=== PATIENT | female | born 1945 | race Caucasian/White ===

== ENCOUNTER 2018-02-21 16:31 | Inpatient (IN) | payer MEDICARE, OTHER ==
[~2018-02-21 16:31] MED LIST: AMLO10 PO; CARV3.125 PO; CLON.1 PO; FURO20 PO; GLUCTAB PO; LISI40TA PO; PANT20 PO
[2018-02-21 16:38] VITALS: BP 128/62; PULSE 100; RESP 20; TEMP 98.1; O2SAT 96
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
[2018-02-21] MEDS ORDERED: MECLIZINE HCL 25 MG TAB PO ONE (17:15)
[2018-02-21] MEDS ORDERED: DEXTROSE 50% IN WATER 50 ML VIAL(D50) IV PUSH ONE ×2 (17:15→18:30)
[2018-02-21 17:16] VITALS: O2SAT 97
--- NOTE | 2018-02-21 17:37 | RADRPT ---
EXAM DATE/TIME: 02/21/2018 17:09 [facility] COMPARISON: CHEST SINGLE AP, September 19, 2015, 4:05. INDICATIONS : Palpitations MEDICAL HISTORY : None. SURGICAL HISTORY : None. ENCOUNTER: Initial ACUITY: 1 day PAIN SCORE: 0/10 LOCATION: chest FINDINGS: A single view of the chest demonstrates the lungs to be symmetrically aerated without evidence of mas s, infiltrate or effusion. The cardiomediastinal contours are unremarkable. Osseous structures are intact. CONCLUSION: Normal examination. The aorta is quite tortuous. Kai Walker MD on February 21, 2018 at 17:34 Board Certified Radiologist. This report was verified electronically.
[2018-02-21 17:43] LABS: BASOPHIL % 0.4 % (0.0-2.0); EOSINOPHIL % 0.4 % (0.0-4.0); HEMATOCRIT 25.6 % (35.0-46.0); LYMPH % 5.7 % (9.0-44.0); LYMPHOCYTE # 0.5 TH/MM3 (1.0-4.8); MEAN CORPUSCULAR HEMOGLOBIN 24.4 PG (27.0-34.0); MEAN CORPUSCULAR HGB CONC 31.3 % (32.0-36.0); MEAN PLATELET VOLUME 8.2 FL (7.0-11.0); MONO % 9.5 % (0.0-8.0); MONOCYTE # 0.9 TH/MM3 (0-0.9); PLATELET COUNT 444 TH/MM3 (150-450); RED BLOOD COUNT 3.28 MIL/MM3 (4.00-5.30); RED CELL DISTRIBUTION WIDTH 26.3 % (11.6-17.2); WHITE BLOOD COUNT 9.5 TH/MM3 (4.0-11.0)
--- NOTE | 2018-02-21 17:58 | RADRPT ---
EXAM DATE/TIME: 02/21/2018 17:21 [facility] COMPARISON: CT BRAIN W/O CONTRAST, September 19, 2015, 4:40. INDICATIONS : Dizzy,potassium level of 7.2 RADIATION DOSE: 56.35 CTDIvol (mGy) MEDICAL HISTORY : Cerebrovascular disease. Cardiovascular disease Hypertension.Diabetes,anemea SURGICAL HISTORY : Nephrectomy, left. ENCOUNTER: Initial ACUITY: 1 day PAIN SCALE: 0/10 LOCATION: cranial TECHNIQUE: Multiple contiguous axial images were obtained of the head. Using automated exposure control and adj ustment of the mA and/or kV according to patient size, radiation dose was kept as low as reasonably a chievable to obtain optimal diagnostic quality images. DICOM format image data is available electro nically for review and comparison. FINDINGS: CEREBRUM: 2 small lacunar infarcts in the left basal ganglia . The ventricles are normal for age. No evidence of midline shift, mass lesion, hemorrhage or acute infarction. No extra-axial fluid collections are seen. POSTERIOR FOSSA: The cerebellum and brainstem are intact. The 4th ventricle is midline. The cerebellopontine angle i s unremarkable. EXTRACRANIAL: The visualized portion of the orbits is intact. SKULL: The calvaria is intact. No evidence of skull fracture. CONCLUSION: 2 lacunar infarcts on the left, chronic. No evidence of acute hemorrhage or edema. Kai Walker MD on February 21, 2018 at 17:55 Board Certified Radiologist. This report was verified electronically.
[2018-02-21] MEDS ORDERED: PANTOPRAZOLE SODIUM 40 MG VIAL IVP ONE (18:00)
[2018-02-21 18:12] LABS: ALBUMIN 3.1 GM/DL (3.4-5.0); ALKALINE PHOSPHATASE 139 U/L (45-117); ALT (GPT) 22 U/L (10-53); AST (GOT) 22 U/L (15-37); BICARBONATE 15.8 MEQ/L (21.0-32.0); BLOOD UREA NITROGEN 37 MG/DL (7-18); CHLORIDE 111 MEQ/L (98-107); GLOMERULAR FILTRATION RATE 17 ML/MIN (>89); MAGNESIUM 1.8 MG/DL (1.5-2.5); SODIUM (NA) 135 MEQ/L (136-145); TOTAL BILIRUBIN ADULT 0.2 MG/DL (0.2-1.0); TOTAL PROTEIN 7.6 GM/DL (6.4-8.2); TROPONIN I LESS THAN 0.02 NG/ML (0.02-0.05)
[2018-02-21 18:15] LABS: GLUCOSE,RANDOM 49 MG/DL (74-106)
[2018-02-21 18:29] LABS: OVALOCYTES 2+ (NORMAL)
[2018-02-21] MEDS ORDERED: CALCIUM GLUCONATE 10% 1 GM/10 ML VIAL IV PUSH ONE (18:30)
[2018-02-21] MEDS ORDERED: INSULIN HUMAN REGULAR 1,000 UNITS/10 ML VIAL IV PUSH ONE (18:30)
[2018-02-21] MEDS ORDERED: SODIUM POLYSTYRENE SULFONATE SUSP 15 GM/60 ML CUP PO ONE ×2 (18:30→20:00)
[2018-02-21] MEDS ORDERED: RESP: ALBUTEROL CONC 2.5 MG/0.5 ML NEB INH ONE (18:30)
[2018-02-21] MEDS ORDERED: GLIM2TAB PO (18:32)
[2018-02-21] MEDS ORDERED: SPIRCAP INH (18:32)
[2018-02-21] MEDS ORDERED: LISI40TA PO (18:32)
[2018-02-21] MEDS ORDERED: FURO20TA PO (18:32)
[2018-02-21] MEDS ORDERED: SPIR50TA PO (18:32)
[2018-02-21] MEDS ORDERED: AMLO10TA2 PO (18:32)
[2018-02-21] MEDS ORDERED: METF500T PO (18:32)
[2018-02-21] MEDS ORDERED: VENTAER INH (18:32)
[2018-02-21] MEDS ORDERED: FERR325T18 PO (18:32)
[2018-02-21] MEDS ORDERED: CARV6.252 PO (18:32)
[2018-02-21] MEDS ORDERED: GABA100C4 PO (18:32)
[2018-02-21] MEDS ORDERED: CLON0.1T PO (18:32)
[2018-02-21 18:53] LABS: INTERNATIONAL NORMALIZED RATIO 1.1 RATIO; PROTHROMBIN TIME - PATIENT 10.7 SEC (9.8-11.6)
[2018-02-21] MEDS ORDERED: NALOXONE HCL 0.4 MG/ML AMP IV PUSH PRN (19:00)
[2018-02-21] MEDS ORDERED: SODIUM CHLORIDE 0.9% FLUSH 10 ML FLUSH IV FLUSH PRN (19:00)
[2018-02-21 20:00] VITALS: BP 120/59; PULSE 113; RESP 16; TEMP 98.5; O2SAT 96
[2018-02-21] MEDS ORDERED: GLUCAGON 1 MG/ML VIAL IM PRN (20:00)
[2018-02-21] MEDS ORDERED: DEXTROSE 50% IN WATER 50 ML VIAL(D50) IV PUSH PRN (20:00)
[2018-02-21] MEDS ORDERED: SODIUM BICARBONATE 8.4% INJ 150 MEQ in DEXTROSE 5% IN WATE 1000ML INJ 1,000 ML IV ONE ×2 (20:16)
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
[2018-02-21] MEDS ORDERED: AZITHROMYCIN 250 MG TAB PO ONE (21:00)
[2018-02-21 21:49] LABS: AMORPHOUS SEDIMENT, URINE RARE; BACTERIA, URINE MANY /hpf; BILIRUBIN, URINE NEG (NEG); BLOOD, URINE SMALL (NEG); GLUCOSE,URINE NEG (NEG); KETONE, URINE NEG (NEG); MUCUS URINE FEW /lpf (OCC); NITRITE,URINE POS (NEG); SQUAMOUS EPITHELIAL CELL URINE 4 /hpf (0-5); URINE COLOR LIGHT-YELLOW (YELLW/STRAW); URINE LEUKOCYTE ESTERASE MOD (NEG)
[2018-02-21 22:00] VITALS: PULSE 106
--- NOTE | 2018-02-21 22:09 | RADRPT ---
EXAM DATE/TIME: 02/21/2018 21:39 [place] COMPARISON: No previous studies available for comparison. INDICATIONS : Trauma, fall. Evaluate for fracture. ORAL CONTRAST: No oral contrast ingested. RADIATION DOSE: 52.00 CTDIvol (mGy) ; Patient body habitus MEDICAL HISTORY : Hypertension. Myocardial infarction. Renal disease. SURGICAL HISTORY : Nephrectomy, left. ENCOUNTER: Initial ACUITY: 1 day PAIN SCALE: 7/10 LOCATION: pelvis TECHNIQUE: Volumetric scanning of the pelvis was performed. Using automated exposure control and adjustment of the mA and/or kV according to patient size, radiation dose was kept as low as reasonably achievable t o obtain optimal diagnostic quality images. DICOM format image data is available electronically for review and comparison. FINDINGS: The bony pelvis is intact and has normal morphology. No subluxation of either hip. There is mild bila teral hip osteoarthritis. Mild to moderate degenerative changes of both sacroiliac joints and also the pubic symphysis. No free fluid, hematoma or other acute abnormality seen in the pelvic cavity. Patient has an approxim ately 2.5 cm ventral hernia containing a small amount of fat roughly mcc between the umbilicus an d pubic symphysis. Previous periumbilical hernia repair and appears intact. Also a previous left ingu inal hernia repair that appears intact. CONCLUSION: No fracture or other acute abnormality demonstrated. Alexis Ricks MD on February 21, 2018 at 22:03 Board Certified Radiologist. This report was verified electronically.
[2018-02-21] MEDS: cefTRIAXone INJ 1,000 MG in SODIUM CHLORIDE 0.9% INJ 100 ML IV SCH (22:20)
[2018-02-21] MEDS: NYSTATIN 100,000 U/GM PWD 15 GM BTL TOPICAL SCH (22:21)
[2018-02-21] MEDS: CARVEDILOL 6.25 MG TAB PO SCH (22:21)
[2018-02-21] MEDS: cloNIDine HCL 0.1 MG TAB PO SCH (22:22)
[2018-02-21] MEDS: SODIUM CHLORIDE 0.9% FLUSH 10 ML FLUSH IV FLUSH SCH (22:28)
[2018-02-21 23:25] VITALS: BP 108/53; PULSE 99; RESP 17; TEMP 100.3; O2SAT 95
[2018-02-21 23:54] VITALS: BP 95/51; PULSE 95; RESP 17; TEMP 101.2; O2SAT 94
[2018-02-22] VITALS (8 sets, daily range): BP systolic 104–136; BP diastolic 54–63; PULSE 70–121; RESP 16–24; TEMP 97.3–100.3; O2SAT 93–99
[2018-02-22 05:24] LABS: BASOPHIL # 0.1 TH/MM3 (0-0.2); BASOPHIL % 0.7 % (0.0-2.0); EOSINOPHIL % 0.5 % (0.0-4.0); HEMATOCRIT 24.4 % (35.0-46.0); HEMOGLOBIN 7.9 GM/DL (11.6-15.3); LYMPH % 11.2 % (9.0-44.0); MEAN CELL VOLUME 78.1 FL (80.0-100.0); MEAN CORPUSCULAR HEMOGLOBIN 25.2 PG (27.0-34.0); MEAN CORPUSCULAR HGB CONC 32.3 % (32.0-36.0); MEAN PLATELET VOLUME 8.1 FL (7.0-11.0); MONOCYTE # 1.1 TH/MM3 (0-0.9); NEUT % 75.6 % (16.0-70.0); PLATELET COUNT 360 TH/MM3 (150-450); RED BLOOD COUNT 3.12 MIL/MM3 (4.00-5.30); RED CELL DISTRIBUTION WIDTH 25.9 % (11.6-17.2); WHITE BLOOD COUNT 9.3 TH/MM3 (4.0-11.0)
[2018-02-22 05:48] LABS: BICARBONATE 18.2 MEQ/L (21.0-32.0); CALCIUM 9.3 MG/DL (8.5-10.1); CREATININE 2.76 MG/DL (0.50-1.00)
[2018-02-22] MEDS ORDERED: ACETAMINOPHEN 325 MG TAB PO PRN (06:00)
[2018-02-22] MEDS: NYSTATIN 100,000 U/GM PWD 15 GM BTL TOPICAL SCH ×3 (06:18→20:37)
[2018-02-22] MEDS: CARVEDILOL 6.25 MG TAB PO SCH ×2 (08:40→20:37)
[2018-02-22] MEDS: GABAPENTIN 100 MG CAP PO SCH ×4 (08:40→17:25)
[2018-02-22] MEDS: FERROUS SULFATE 325 MG (65 MG ELEMENTAL IRON) TAB PO SCH ×2 (08:40→17:25)
[2018-02-22] MEDS: AZITHROMYCIN 250 MG TAB PO SCH (08:40)
[2018-02-22] MEDS: SODIUM CHLORIDE 0.9% FLUSH 10 ML FLUSH IV FLUSH SCH ×2 (08:40→20:37)
[2018-02-22] MEDS: cloNIDine HCL 0.1 MG TAB PO SCH ×2 (08:40→20:37)
[2018-02-22] MEDS: TIOTROPIUM BROMIDE 18 MCG INH INH SCH (08:40)
[2018-02-22] MEDS ORDERED: FUROSEMIDE 20 MG TAB PO SCH (09:00)
[2018-02-22] MEDS ORDERED: FAMOTIDINE 20 MG TAB PO SCH (09:00)
--- NOTE | 2018-02-22 09:19 | PD.CONS ---
HPI History of Present Illness This is a 72 year old female who was advised by her PCP to come to ER for potassium level 7.2. GI is consulted for anemia and poss GIB. Pt has noticed black stools that are formed in the last week since beginning an oral iron supplement. She admits chronic scan BRBPR seen on wipe after BMs. She had colonoscopy somewhere in 4-5 years ago and says she was told blood was seen, further details she provides are incomprehensible. She had EGD at that time as well and can recall no abnormal findings. She denies abd pain, n/v, weight loss. She does not take blood thinners or NSAIDs. She admits having 2 falls in the last month. 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, speech deficits Past Surgical History Cholecystectomy left nephrectomy inguinal hernia repair (Rona Og) Coded Allergies: iodine (Verified Allergy, Severe, Swelling, 02/21/18) potassium iodide (Verified Allergy, Severe, Swelling, 02/21/18) povidone-iodine (Verified Allergy, Severe, Swelling, 02/21/18) sodium iodide (Verified Allergy, Severe, Swelling, 02/21/18) sodium iodide (Verified Allergy, Severe, Swelling, 02/21/18) penicillin G (Verified Allergy, Intermediate, Swelling, 02/21/18) latex (Verified Allergy, Mild, 02/21/18) bumps redness on hands Uncoded Allergies: LANOLIN (Allergy, Intermediate, Rash, 01/27/04) Family History mom- heart problems , rheumatic heart dx sister-same heart as above Social History used to smoke, quit a lot of times no eoth abuse no drugs lives on her own, no longer driving now (Rona Og) Review of Systems Constitutional: DENIES: Fever Endocrine: DENIES: Polydipsia Eyes: DENIES: Blurred vision Ears, nose, mouth, throat: DENIES: Hearing loss Respiratory: COMPLAINS OF: Wheezing, DENIES: Cough Cardiovascular: DENIES: Chest pain Gastrointestinal: COMPLAINS OF: Black stools, DENIES: Abdominal pain, Bloody stools, Constipation, Diarrhea, Nausea, Vomiting Genitourinary: DENIES: Hematuria Musculoskeletal: DENIES: Joint Swelling Integumentary: DENIES: Nail changes Hematologic/lymphatic: DENIES: Bruising Immunologic/allergic: DENIES: Eczema Neurologic: DENIES: Headache Psychiatric: DENIES: Confusion (Rona Og) GI Exam Vitals I&O Vital Signs Date Time Temp Pulse Resp B/P (MAP) Pulse Ox O2 Delivery O2 Flow Rate FiO2 02/22/18 06:15 98.9 88 16 111/54 02/22/18 05:16 100.3 91 16 104/54 94 02/22/18 00:04 99.7 94 17 107/54 97 02/22/18 00:00 97.3 70 16 136/56 (82) 95 02/22/18 00:00 87 02/21/18 23:54 101.2 95 17 95/51 94 02/21/18 23:25 100.3 99 17 108/53 95 02/21/18 22:00 106 02/21/18 20:00 98.5 113 16 120/59 (79) 96 02/21/18 17:16 97 Room Air 02/21/18 16:38 98.1 100 20 128/62 (84) 96 I/O 02/21/18 02/21/18 02/21/18 02/22/18 02/22/18 02/22/18 07:00 15:00 23:00 07:00 15:00 23:00 Intake Total 1200 ml Balance 1200 ml Intake IV Total 100 ml Packed Cells 1000 ml Blood Product IV Normal Saline Flush 100 ml Imaging Last Impressions Head CT 02/21/181702 Signed Impressions: Service Date/Time: January 17:21 - CONCLUSION: 2 lacunar infarcts on the left, chronic. No evidence of acute hemorrhage or edema. Kai Walker MD Chest X-Ray 02/21/181702 Signed Impressions: Service Date/Time: January 17:09 - CONCLUSION: Normal examination. The aorta is quite tortuous. Kai Walker MD Pelvis CT 02/21/18 0000 Signed Impressions: Service Date/Time: January 21:39 - CONCLUSION: No fracture or other acute abnormality demonstrated. Alexis Ricks MD Laboratory Test 02/21/18 17:00 02/21/18 17:55 02/21/18 20:30 02/22/18 04:47 White Blood Count 9.5 TH/MM3 9.3 TH/MM3 Red Blood Count 3.28 MIL/MM3 3.12 MIL/MM3 Hemoglobin 8.0 GM/DL 7.9 GM/DL Hematocrit 25.6 % 24.4 % Mean Corpuscular Volume 78.0 FL 78.1 FL Mean Corpuscular Hemoglobin 24.4 PG 25.2 PG Mean Corpuscular Hemoglobin Concent 31.3 % 32.3 % Red Cell Distribution Width 26.3 % 25.9 % Platelet Count 444 TH/MM3 360 TH/MM3 Mean Platelet Volume 8.2 FL 8.1 FL Neutrophils (%) (Auto) 84.0 % 75.6 % Lymphocytes (%) (Auto) 5.7 % 11.2 % Monocytes (%) (Auto) 9.5 % 12.0 % Eosinophils (%) (Auto) 0.4 % 0.5 % Basophils (%) (Auto) 0.4 % 0.7 % Neutrophils # (Auto) 8.0 TH/MM3 7.0 TH/MM3 Lymphocytes # (Auto) 0.5 TH/MM3 1.0 TH/MM3 Monocytes # (Auto) 0.9 TH/MM3 1.1 TH/MM3 Eosinophils # (Auto) 0.0 TH/MM3 0.0 TH/MM3 Basophils # (Auto) 0.0 TH/MM3 0.1 TH/MM3 CBC Comment AUTO DIFF AUTO DIFF Differential Comment AUTO DIFF CONFIRMED AUTO DIFF CONFIRMED Platelet Estimate HIGH Platelet Morphology Comment NORMAL Ovalocytes 2+ Blood Urea Nitrogen 37 MG/DL 38 MG/DL Creatinine 2.80 MG/DL 2.76 MG/DL Random Glucose 49 MG/DL 75 MG/DL Total Protein 7.6 GM/DL Albumin 3.1 GM/DL Calcium Level 10.0 MG/DL 9.3 MG/DL Magnesium Level 1.8 MG/DL Alkaline Phosphatase 139 U/L Aspartate Amino Transf (AST/SGOT) 22 U/L Alanine Aminotransferase (ALT/SGPT) 22 U/L Total Bilirubin 0.2 MG/DL Sodium Level 135 MEQ/L 142 MEQ/L Potassium Level 6.5 MEQ/L 6.1 MEQ/L Chloride Level 111 MEQ/L 115 MEQ/L Carbon Dioxide Level 15.8 MEQ/L 18.2 MEQ/L Anion Gap 8 MEQ/L 9 MEQ/L Estimat Glomerular Filtration Rate 17 ML/MIN 17 ML/MIN Total Creatine Kinase 140 U/L Creatine Kinase MB 4.9 NG/ML Troponin I LESS THAN 0.02 NG/ML Prothrombin Time 10.7 SEC Prothromb Time International Ratio 1.1 RATIO Activated Partial Thromboplast Time 25.9 SEC Urine Color LIGHT-YELLOW Urine Turbidity HAZY Urine pH 5.0 Urine Specific [place] 1.011 Urine Protein 30 mg/dL Urine Glucose (UA) NEG mg/dL Urine Ketones NEG mg/dL Urine Occult Blood SMALL Urine Nitrite POS Urine Bilirubin NEG Urine Urobilinogen LESS THAN 2.0 MG/DL Urine Leukocyte Esterase MOD Urine RBC LESS THAN 1 /hpf Urine WBC 6 /hpf Urine Squamous Epithelial Cells 4 /hpf Urine Amorphous Sediment RARE Urine Bacteria MANY /hpf Urine Mucus FEW /lpf Microscopic Urinalysis Comment CULTURE INDICATED Date/Time Source Procedure Growth Status 02/22/18 04:47 Blood Peripheral Aerobic Blood Culture Pending Received 02/22/18 04:47 Blood Peripheral Anaerobic Blood Culture Pending Received 02/21/18 20:30 Urine Clean Catch Urine Culture Pending Received Physical Examination HEENT: PERRL; normocephalic; atraumatic; no jaundice. CHEST: wheezes CARDIAC: RRR ABDOMEN: Soft,obese, LUQ TTP; bowel sounds are present in all four quadrants. EXTREMITIES: No clubbing, cyanosis, or edema. SKIN: Normal; no rash; no jaundice. CAMPUS DIRECTOR: alert (Rona Og) Assessment and Plan Plan ASSESSMENT - black stool, BRBPR - poss GIB. black stool could be from iron vs UGIB. admits chronic lifelong scant blood on wipe after BMs. says she had colonoscopy 4-5 years ago and bleeding seen. Had EGD also but can recall no abnormal findings. - anemia - 2/2 above, microcytic. has been taking iron. PLAN - EGD today - obtain consent - NPO - monitor labs - notify GI of active bleeding - colonoscopy Sunday if here, vs outpt - further recs to follow pt seen by myself and Dr Flaherty and this note is on his behalf (Rona Og) Physician Comments Patient seen and examined Agree with above Continue with current supportive care Monitor labs GI bleed etiology unclear at this point the patient is noted to have chronic renal insufficiency with hyperkalemia but her EKG appears to be stable she also was noted to have mild hypoglycemia we will go ahead and give D50 this should help her sugar and bring down her potassium we will also proceed with an EGD to further evaluate for source of bleeding if negative then most likely she will need a colonoscopy probably on Sunday Of note the patient appears to have chronic renal insufficiency or even acute but unfortunately she is also taking spironolactone I would recommend that this be put on hold at this point and it seems that the patient will need a nephrology evaluation Further recommendations will depend on the findings of the endoscopy (Saad Flaherty MD) Rona Og Feb 22, 2018 9:19 am Saad Flaherty MD Feb 22, 2018 11:51 am
--- NOTE | 2018-02-22 11:41 | PD.WCN.NOT ---
Wound Consult Description: Received consult from Doctor Parsons for evaluation of pressure ulcer to sacral area. Communicated with: RN Julianne hansen and Doctor Murcia Recommendation: 1.Please cleanse wounds to bilateral buttocks with normal saline and pat dry. Apply Calazime skin protectant paste to bilateral, buttocks, and gluteal cleft in a thick layer covering wounds BID and PRN leave open to air. 2. Use ultrasorb pads under patient for moisture and incontinence management . Do not use cloth underpads. 3. Assist patient with turning and repositioning in bed every 2 hours and PRN for comfort and offloading of pressure from iqra prominences. 4. Place patient on K4 bed from [facility] Additional Information: Patient seen on for evaluation of sacral pressure ulcer that was present on admission. Moderate assistance was needed to turn patient toward the L side to reveal four wounds on bilateral buttock area with periwound erythema. R buttock presents with two wounds the most proximal wound 1 measures 1.1cm x 2cm x ~0.2cm. Wound bed presents with 80% red non granulation tissue, ~10% pink tissue, and ~10% yellow tissue. Wound margins are well defined and wound has a round shape. Wound was left open to air. Wound 2 to R buttock, that is more distal measures 0.7cm x 1 cm x ~0.2cm. Wound margins are well defined and even. Wound bed presents with 100% red non granulation tissue.Wound has a oblong shape and was left open to air. Wound 3 is on the L proximal buttock measuring 1cm x 0.4cm x ~0.2cm. Wound bed presents with 90% red non granulation tissue and ~10 % yellow tissue. Wound margins are well defined and wound has an oblong shape.Wound was left open to air. Wound 4 is located distally on L buttock and also measures 1cm x 0.4cm x ~ 0.2cm. Wound bed presents with 100% red non granulation tissue. Wound margins are well defined and wound also has an oblong shape. Wound was left open to air. Patient admits to having difficulty with mobility due to history of a stroke and often doesn't reposition or move in bed. Patient has moist bed cloth pads under her.Wounds etiology based on assessment is moisture and pressure. Wounds depth goes beyond the first layer of skin indicating stage 3 pressure injuries. Removed soiled moist cloth pads. Patient's wounds were cleansed with normal saline. Thick layer of Calazime skin protectant paste was applied covering bilateral buttocks, gluteal cleft and wounds. Jessica Amos [facility] Feb 22, 2018 11:41
[2018-02-22] MEDS ORDERED: DEXTROSE 50% IN WATER 50 ML SYRINGE ONE (11:51)
[2018-02-22] MEDS ORDERED: LIDOCAINE HCL 1% PF 5 ML SYRINGE OTHER ONE (12:00)
[2018-02-22] MEDS ORDERED: GLYCOPYRROLATE 1 MG/5 ML SYRINGE IV PUSH ONE (12:00)
[2018-02-22] MEDS ORDERED: PHENYLEPH/NS 1000 MCG/10 ML SYR IV ONE (12:00)
[2018-02-22] MEDS ORDERED: PROPOFOL 200 MG/20 ML AMP IV ONE (12:00)
--- NOTE | 2018-02-22 12:17 | PD.PROCEDR ---
GI Procedure PROCEDURE PERFORMED EGD with biopsies INDICATION FOR PROCEDURE GI bleed, anemia PROCEDURE: The procedure, risks and benefits were discussed with Patient/POA and informed consent was obtained. Anesthesia sedated Patient with Diprivan. Patient was placed in the left lateral decubitus position. EGD: The Pentax videoscope was introduced through the oropharynx and advanced to the second portion of the duodenum under direct visualization. Retroflexion was performed in the stomach. FINDINGS: The esophagus there was distal esophageal mucosal erythema and friability with probable ulceration just above the GE junction this was biopsied no visible vessel was seen and no active bleeding The stomach there was a moderately sized hiatal hernia and there was kind of a nodularity just beneath the esophageal ulceration on the cardia side this too was biopsied this was of unclear significance the gastric mucosa though appear to be diffusely edematous with some patchy erythema in the antrum and so biopsies were taken from the antrum also The duodenum there was also some nodularity and thickening of folds in the duodenal bulb of unclear significance this was biopsied the rest of the duodenum was unremarkable ESTIMATED BLOOD LOSS: Minimal SPECIMENS REMOVED: Biopsies taken from the esophagus the stomach and the duodenum COMPLICATIONS: None IMPRESSION: Severe esophagitis with esophageal ulceration The nodularity noted at the GE junction on the cardia side of unclear significance Hiatal hernia [place] gastritis And duodenal bulb duodenitis PLAN: Await biopsies Recommend Protonix 40 mg Monitor labs EGD in 2 months Colonoscopy on Sunday or as outpatient depending on her hospital course Saad Flaherty MD Feb 22, 2018 12:17
--- NOTE | 2018-02-22 12:39 | HHI.PR ---
Subjective Remarks Patient reports she is feeling okay. No chest pain or shortness of breath. Objective Vitals Vital Signs Date Time Temp Pulse Resp B/P (MAP) Pulse Ox O2 Delivery O2 Flow Rate FiO2 02/22/18 08:00 99.4 91 22 112/56 (74) 93 02/22/18 06:15 98.9 88 16 111/54 02/22/18 05:16 100.3 91 16 104/54 94 02/22/18 00:04 99.7 94 17 107/54 97 02/22/18 00:00 97.3 70 16 136/56 (82) 95 02/22/18 00:00 87 02/21/18 23:54 101.2 95 17 95/51 94 02/21/18 23:25 100.3 99 17 108/53 95 02/21/18 22:00 106 02/21/18 20:00 98.5 113 16 120/59 (79) 96 02/21/18 17:16 97 Room Air 02/21/18 16:38 98.1 100 20 128/62 (84) 96 I/O 02/21/18 02/21/18 02/21/18 02/22/18 02/22/18 02/22/18 07:00 15:00 23:00 07:00 15:00 23:00 Intake Total 1200 ml 510 ml Balance 1200 ml 510 ml Intake IV Total 100 ml Packed Cells 1000 ml 400 ml Blood Product IV Normal Saline Flush 100 ml 10 ml Other 100 ml Result Diagram: 02/22/18 0447 02/22/18 044 Objective Remarks GENERAL: Elderly and frail female CARDIOVASCULAR: Regular rate and rhythm without murmurs, gallops, or rubs. RESPIRATORY: Clear to auscultation. Breath sounds equal bilaterally. No wheezes , rales, or rhonchi. GASTROINTESTINAL: Abdomen soft, non-tender, nondistended. . No guarding. MUSCULOSKELETAL: Extremities without clubbing, cyanosis, or edema. No calf tenderness. NEUROLOGICAL: Awake and alert. Motor and sensory grossly within normal limits. Normal speech. A/P Assessment and Plan 72-year-old female with: Acute on chronic kidney injury: Baseline creatinine is around 1.5. - Improving. Continue IV fluid for 1 more liter. - Avoid nephrotoxins and follow-up BMP in a.m. Hyperkalemia. Multifactorial. Patient on KAT inhibitor/s potassium sparing diuretic. - Patient was given calcium gluconate/insulin/dextrose/Kayexalate in ER for hyperkalemia treatment. -Some improvement. Continue to monitor. GI bleeding: Hemoccult positive in the ED. - GI has been consulted Urinary tract infection: Abnormal urinalysis and patient is having fever, - On Rocephin. Continue to monitor urine cultures. Hypoglycemia. Suspect underlying infection causing this. -Resolved. Continue to monitor. Combination of iron deficiency anemia and acute blood loss anemia. -Transfusion of 2 units of PRBC. Follow-up H&H. -GI consulted. Continue iron supplements. Small skin ulcerations sacral area. Present on admission. Likely from poor personal hygiene and elderly who is living by herself. - Nursing to monitor. Frequent turning. Wound care consult for skin ulcers. Debility: Patient with recent falls. - Consult PT Diabetes: Sliding scale insulin with Accu-Cheks. Hold oral hypoglycemic medications and long-acting insulin. Hold lisinopril and Aldactone due to hyperkalemia. Hold Lasix due to renal failure. DVT prophylaxis with SCD. Hold chemoprophylaxis due to GI bleed. GI prophylaxis on famotidine. Ganga Murcia MD Feb 22, 2018 12:39
[2018-02-22] MEDS ORDERED: ACETAMINOPHEN 500 MG CPLT ONE (12:40)
[2018-02-22] MEDS ORDERED: ACETAMINOPHEN 500 MG CPLT PO ONE (12:45)
[2018-02-22] MEDS: PANTOPRAZOLE SOD 40 MG DELAYED RELEASE TAB PO SCH (13:40)
--- NOTE | 2018-02-22 13:46 | EKG ---
Date Performed: 02/21/2018 Time Performed: 16:59:13 PTAGE: 72 years EKG: Sinus rhythm NORMAL ECG PREVIOUS TRACING : 09/18/2015 15.58 Since the previous tracing, no significant change noted DOCTOR: Tin Valentine Interpretating Date/Time 02/22/2018 13:43:33
[2018-02-22] MEDS: cefTRIAXone INJ 1,000 MG in SODIUM CHLORIDE 0.9% INJ 100 ML IV SCH (20:37)
[2018-02-23] VITALS (7 sets, daily range): BP systolic 99–133; BP diastolic 58–75; PULSE 70–93; RESP 18–20; TEMP 97.9–99; O2SAT 91–95
[2018-02-23] MEDS: NYSTATIN 100,000 U/GM PWD 15 GM BTL TOPICAL SCH ×3 (05:45→21:57)
[2018-02-23 07:16] LABS: HEMATOCRIT 31.3 % (35.0-46.0); HEMOGLOBIN 10.1 GM/DL (11.6-15.3); MEAN CORPUSCULAR HEMOGLOBIN 25.8 PG (27.0-34.0); MEAN CORPUSCULAR HGB CONC 32.3 % (32.0-36.0); MEAN PLATELET VOLUME 8.6 FL (7.0-11.0); PLATELET COUNT 299 TH/MM3 (150-450); RED BLOOD COUNT 3.91 MIL/MM3 (4.00-5.30); WHITE BLOOD COUNT 7.1 TH/MM3 (4.0-11.0)
[2018-02-23 07:51] LABS: ALBUMIN 2.4 GM/DL (3.4-5.0); ALKALINE PHOSPHATASE 108 U/L (45-117); ALT (GPT) 22 U/L (10-53); AST (GOT) 21 U/L (15-37); BICARBONATE 19.3 MEQ/L (21.0-32.0); BLOOD UREA NITROGEN 32 MG/DL (7-18); CALCIUM 9.7 MG/DL (8.5-10.1); CHLORIDE 114 MEQ/L (98-107); CREATININE 2.49 MG/DL (0.50-1.00); GLOMERULAR FILTRATION RATE 19 ML/MIN (>89); GLUCOSE,RANDOM 107 MG/DL (74-106); SODIUM (NA) 143 MEQ/L (136-145); TOTAL BILIRUBIN ADULT 0.2 MG/DL (0.2-1.0); TOTAL PROTEIN 6.7 GM/DL (6.4-8.2)
[2018-02-23] MEDS: TIOTROPIUM BROMIDE 18 MCG INH INH SCH (10:11)
[2018-02-23] MEDS: SODIUM CHLORIDE 0.9% FLUSH 10 ML FLUSH IV FLUSH SCH ×2 (10:12→21:54)
[2018-02-23] MEDS: PANTOPRAZOLE SOD 40 MG DELAYED RELEASE TAB PO SCH (10:13)
[2018-02-23] MEDS: AZITHROMYCIN 250 MG TAB PO SCH (10:14)
[2018-02-23] MEDS: cloNIDine HCL 0.1 MG TAB PO SCH ×2 (10:14→21:53)
[2018-02-23] MEDS: CARVEDILOL 6.25 MG TAB PO SCH ×2 (10:14→21:53)
[2018-02-23] MEDS: FERROUS SULFATE 325 MG (65 MG ELEMENTAL IRON) TAB PO SCH ×2 (10:14→16:53)
[2018-02-23] MEDS: GABAPENTIN 100 MG CAP PO SCH ×3 (10:14→16:53)
--- NOTE | 2018-02-23 11:09 | HHI.PR ---
Subjective Remarks Patient reports she is feeling okay. Initially refused rehab placement. After extensive discussion with her, she admits that she is too weak and is agreeable to rehab placement. Objective Vitals Vital Signs Date Time Temp Pulse Resp B/P (MAP) Pulse Ox O2 Delivery O2 Flow Rate FiO2 02/23/18 07:58 98.7 85 20 120/68 (85) 93 02/23/18 04:00 90 02/23/18 04:00 98.4 93 18 132/ 91 132/72 (92) 02/23/18 00:16 99.0 88 20 133/75 (94) 95 02/23/18 00:00 87 02/22/18 20:00 99.6 98 24 125/55 (78) 99 02/22/18 20:00 102 02/22/18 16:00 98.2 88 21 115/58 (77) 95 02/22/18 13:02 94 24 100/ 95 100/53 (69) 02/22/18 12:24 100.9 95 20 105/52 (69) 98 02/22/18 12:00 98.9 88 20 115/63 (80) 94 I/O 02/22/18 02/22/18 02/22/18 02/23/18 02/23/18 02/23/18 07:00 15:00 23:00 07:00 15:00 23:00 Intake Total 1200 ml 510 ml 100 ml Balance 1200 ml 510 ml 100 ml Intake IV Total 100 ml 100 ml Packed Cells 1000 ml 400 ml Blood Product IV Normal Saline Flush 100 ml 10 ml Other 100 ml # Voids 4 # Bowel Movements 0 Result Diagram: 02/23/18 0548 02/23/18 0548 Objective Remarks GENERAL: Elderly and frail female CARDIOVASCULAR: Regular rate and rhythm without murmurs, gallops, or rubs. RESPIRATORY: Clear to auscultation. Breath sounds equal bilaterally. No wheezes , rales, or rhonchi. GASTROINTESTINAL: Abdomen soft, non-tender, nondistended. . No guarding. MUSCULOSKELETAL: Extremities without clubbing, cyanosis, or edema. No calf tenderness. NEUROLOGICAL: Awake and alert. Motor and sensory grossly within normal limits. Normal speech. A/P Assessment and Plan 72-year-old female with: Acute on chronic kidney injury: Baseline creatinine is around 1.5. - Improving. Discontinue IV fluid. Encourage oral hydration. - Avoid nephrotoxins and follow-up BMP in a.m. Hyperkalemia. Multifactorial. Patient on KAT inhibitor/s potassium sparing diuretic. - Patient was given calcium gluconate/insulin/dextrose/Kayexalate in ER for hyperkalemia treatment. -Resolved. Continue to monitor. GI bleeding: Hemoccult positive in the ED. - GI has been consulted, patient underwent EGD which showed severe esophagitis with esophageal ulceration, Hiatal hernia, [place] gastritis and duodenal bulb duodenitis -Continue PPI. Urinary tract infection: Abnormal urinalysis and patient is having fever, - On Rocephin. Continue to monitor urine cultures. So far growing gram- negative rods. Hypoglycemia. Suspect underlying infection causing this. -Resolved. Continue to monitor. Combination of iron deficiency anemia and acute blood loss anemia. -Transfusion of 2 units of PRBC. Follow-up H&H stable. -Continue iron supplements. Small skin ulcerations sacral area. Present on admission. Likely from poor personal hygiene and elderly who is living by herself. - Nursing to monitor. Frequent turning. Wound care consult for skin ulcers. Debility: Patient with recent falls. - Consult PT Diabetes: Sliding scale insulin with Accu-Cheks. Hold oral hypoglycemic medications and long-acting insulin. Hold lisinopril and Aldactone due to hyperkalemia. Hold Lasix due to renal failure. DVT prophylaxis with SCD. Hold chemoprophylaxis due to GI bleed. GI prophylaxis, on Protonix. Discharge Planning Plan to DC to rehab tomorrow. Ganga Murcia MD Feb 23, 2018 11:09
--- NOTE | 2018-02-23 15:40 | HHI.GIFU ---
Subjective Remarks Resting in the bed Drowsy but responds to verbal stimuli Denies any abdominal pain Current hemoglobin 10.1 Low-grade fever (Cortney Campos) Objective Vitals I&O Vital Signs Date Time Temp Pulse Resp B/P (MAP) Pulse Ox O2 Delivery O2 Flow Rate FiO2 02/23/18 11:53 18 02/23/18 11:24 98.6 80 20 99/58 (72) 92 02/23/18 07:58 98.7 85 20 120/68 (85) 93 02/23/18 04:00 90 02/23/18 04:00 98.4 93 18 132/ 91 132/72 (92) 02/23/18 00:16 99.0 88 20 133/75 (94) 95 02/23/18 00:00 87 02/22/18 20:00 99.6 98 24 125/55 (78) 99 02/22/18 20:00 102 02/22/18 16:00 98.2 88 21 115/58 (77) 95 I/O 02/22/18 02/22/18 02/22/18 02/23/18 02/23/18 02/23/18 06:59 14:59 22:59 06:59 14:59 22:59 Intake Total 500 ml 1210 ml 100 ml Balance 500 ml 1210 ml 100 ml Intake IV Total 100 ml 100 ml Packed Cells 400 ml 1000 ml Blood Product IV Normal Saline Flush 100 ml 10 ml Other 100 ml # Voids 4 # Bowel Movements 0 Laboratory Laboratory Tests Test 02/23/18 05:48 White Blood Count 7.1 Red Blood Count 3.91 Hemoglobin 10.1 Hematocrit 31.3 Mean Corpuscular Volume 80.0 Mean Corpuscular Hemoglobin 25.8 Mean Corpuscular Hemoglobin Concent 32.3 Red Cell Distribution Width 25.0 Platelet Count 299 Mean Platelet Volume 8.6 Blood Urea Nitrogen 32 Creatinine 2.49 Random Glucose 107 Total Protein 6.7 Albumin 2.4 Calcium Level 9.7 Alkaline Phosphatase 108 Aspartate Amino Transf (AST/SGOT) 21 Alanine Aminotransferase (ALT/SGPT) 22 Total Bilirubin 0.2 Sodium Level 143 Potassium Level 4.8 Chloride Level 114 Carbon Dioxide Level 19.3 Anion Gap 10 Estimat Glomerular Filtration Rate 19 Date/Time Source Procedure Growth Status 02/22/18 04:47 Blood Peripheral Aerobic Blood Culture - Preliminary NO GROWTH IN 1 DAY Resulted 02/22/18 04:47 Blood Peripheral Anaerobic Blood Culture - Preliminary NO GROWTH IN 1 DAY Resulted 02/21/18 20:30 Urine Clean Catch Urine Culture - Preliminary Gram Negative Nicolas Resulted Imaging Last Impressions Head CT 02/21/18 170 Signed Impressions: Service Date/Time: January 17:21 - CONCLUSION: 2 lacunar infarcts on the left, chronic. No evidence of acute hemorrhage or edema. Kai Walker MD Chest X-Ray 02/21/181702 Signed Impressions: Service Date/Time: January 17:09 - CONCLUSION: Normal examination. The aorta is quite tortuous. Kai Walker MD Pelvis CT 02/21/18 0000 Signed Impressions: Service Date/Time: , February 21, 2018 21:39 - CONCLUSION: No fracture or other acute abnormality demonstrated. Alexis Ricks MD Physical Exam HEENT; normocephalic; atraumatic; obese NECK: Neck is supple, obese CHEST: No obvious shortness of breath at rest CARDIAC: Regular rate and rhythm ABDOMEN: Large, soft, nondistended, no abdominal pain, bowel sounds are present in all four quadrants. EXTREMITIES: No edema. SKIN: Normal; no rash; no jaundice. 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 black stool could be from iron vs UGIB. admits chronic lifelong scant blood on wipe after BMs. says she had colonoscopy 4-5 years ago and bleeding seen. Had EGD also but can recall no abnormal findings. - anemia - 2/2 above, microcytic. has been taking iron. EGD done on 12/25/2017 findings include severe esophagitis with ulceration , nodularity at the GE junction on the cardia side, unspecified , hiatal hernia, morin gastritis, and duodenal bulb duodenitis PLAN: Await biopsies Protonix 40 mg Monitor labs EGD in 2 months Colonoscopy on Sunday or can be done as outpatient depending on her hospital course pt seen by myself and Dr Mora. and this note is on his behalf (Cortney Campos) Plan Patient was seen and examined, agree with above note, she feels that she is not active, will monitor H&H tomorrow to stay home and do the procedure for colonoscopy due to endoscopy patient dropped significantly colonoscopy on Sunday (Derik Mora MD) Cortney Campos Feb 23, 2018 15:39 Derik Mora MD Feb 23, 2018 19:01
[2018-02-23] MEDS: cefTRIAXone INJ 1,000 MG in SODIUM CHLORIDE 0.9% INJ 100 ML IV SCH (21:54)
[2018-02-24] VITALS (9 sets, daily range): BP systolic 91–111; BP diastolic 52–68; PULSE 54–77; RESP 16–20; TEMP 97.9–98.7; O2SAT 91–95
[2018-02-24] MEDS: NYSTATIN 100,000 U/GM PWD 15 GM BTL TOPICAL SCH ×3 (05:17→21:46)
[2018-02-24 06:03] LABS: HEMATOCRIT 28.7 % (35.0-46.0); HEMOGLOBIN 9.3 GM/DL (11.6-15.3); MEAN CELL VOLUME 79.7 FL (80.0-100.0); MEAN CORPUSCULAR HEMOGLOBIN 25.8 PG (27.0-34.0); MEAN CORPUSCULAR HGB CONC 32.4 % (32.0-36.0); MEAN PLATELET VOLUME 8.3 FL (7.0-11.0); PLATELET COUNT 276 TH/MM3 (150-450); RED CELL DISTRIBUTION WIDTH 24.6 % (11.6-17.2); WHITE BLOOD COUNT 5.6 TH/MM3 (4.0-11.0)
[2018-02-24] MEDS: GABAPENTIN 100 MG CAP PO SCH ×3 (09:35→17:46)
[2018-02-24] MEDS: cloNIDine HCL 0.1 MG TAB PO SCH ×2 (09:35→21:46)
[2018-02-24] MEDS: SODIUM CHLORIDE 0.9% FLUSH 10 ML FLUSH IV FLUSH SCH ×2 (09:35→21:46)
[2018-02-24] MEDS: CARVEDILOL 6.25 MG TAB PO SCH ×2 (09:36→21:46)
[2018-02-24] MEDS: PANTOPRAZOLE SOD 40 MG DELAYED RELEASE TAB PO SCH (09:36)
[2018-02-24] MEDS: FERROUS SULFATE 325 MG (65 MG ELEMENTAL IRON) TAB PO SCH ×2 (09:36→17:46)
[2018-02-24] MEDS: AZITHROMYCIN 250 MG TAB PO SCH (09:36)
[2018-02-24] MEDS: TIOTROPIUM BROMIDE 18 MCG INH INH SCH (09:39)
--- NOTE | 2018-02-24 10:19 | HHI.PR ---
Subjective Remarks Patient reports feeling ok. No new issues. Objective Vitals Vital Signs Date Time Temp Pulse Resp B/P (MAP) Pulse Ox O2 Delivery O2 Flow Rate FiO2 02/24/18 08:00 97.9 73 18 108/61 (77) 93 02/24/18 04:00 54 02/24/18 04:00 98.5 69 20 110/55 (73) 94 02/24/18 00:13 62 02/24/18 00:00 98.5 68 20 108/68 (81) 94 02/23/18 20:00 72 02/23/18 20:00 97.9 88 20 109/58 (75) 92 02/23/18 15:39 98.1 70 20 105/58 (74) 93 02/23/18 11:53 18 02/23/18 11:24 98.6 80 20 99/58 (72) 92 I/O 02/23/18 02/23/18 02/23/18 02/24/18 02/24/18 02/24/18 07:00 15:00 23:00 07:00 15:00 23:00 Intake Total 480 ml Balance 480 ml Intake Oral 480 ml # Voids 4 4 # Bowel Movements 0 Result Diagram: 02/24/18 0450 02/23/18 0548 Objective Remarks GENERAL: Elderly and frail female CARDIOVASCULAR: Regular rate and rhythm without murmurs, gallops, or rubs. RESPIRATORY: Clear to auscultation. Breath sounds equal bilaterally. No wheezes , rales, or rhonchi. GASTROINTESTINAL: Abdomen soft, non-tender, nondistended. . No guarding. MUSCULOSKELETAL: Extremities without clubbing, cyanosis, or edema. No calf tenderness. NEUROLOGICAL: Awake and alert. Motor and sensory grossly within normal limits. Normal speech. A/P Assessment and Plan 72-year-old female with: Acute on chronic kidney injury: Baseline creatinine is around 1.5. - Improving. Discontinued IV fluid. Encourage oral hydration. - Avoid nephrotoxins and follow-up BMP in a.m. Hyperkalemia. Multifactorial. Patient on KAT inhibitor/s potassium sparing diuretic. - Patient was given calcium gluconate/insulin/dextrose/Kayexalate in ER for hyperkalemia treatment. -Resolved. Continue to monitor. GI bleeding: Hemoccult positive in the ED. - GI has been consulted, patient underwent EGD which showed severe esophagitis with esophageal ulceration, Hiatal hernia, [place] gastritis and duodenal bulb duodenitis - Continue PPI. - GI planning for Colonoscopy in AM. E coli Urinary tract infection: - Completed treatment with Rocephin. Discontinue. Hypoglycemia. Suspect underlying infection causing this. -Resolved. Continue to monitor. Combination of iron deficiency anemia and acute blood loss anemia. -Transfusion of 2 units of PRBC. Follow-up H&H stable. -Continue iron supplements. Small skin ulcerations sacral area. Present on admission. Likely from poor personal hygiene and elderly who is living by herself. - Nursing to monitor. Frequent turning. Wound care consult for skin ulcers. Debility: Patient with recent falls. - Consult PT Diabetes: Sliding scale insulin with Accu-Cheks. Hold oral hypoglycemic medications and long-acting insulin. Hold lisinopril and Aldactone due to hyperkalemia. Hold Lasix due to renal failure. DVT prophylaxis with SCD. Hold chemoprophylaxis due to GI bleed. GI prophylaxis, on Protonix. Discharge Planning Colonoscopy tomorrow. Depending on findings, can possibly be discharged afterwards. Ganga Murcia MD Feb 24, 2018 10:19
--- NOTE | 2018-02-24 14:37 | HHI.GIFU ---
Subjective Remarks Pt resting in bed, eating lunch. nO obvious bleeding. (Rona Og) Objective Vitals I&O Vital Signs Date Time Temp Pulse Resp B/P (MAP) Pulse Ox O2 Delivery O2 Flow Rate FiO2 02/24/18 12:26 98.6 70 18 93/53 (66) 91 91/52 (65) 02/24/18 08:00 97.9 73 18 108/61 (77) 93 02/24/18 08:00 68 02/24/18 04:00 54 02/24/18 04:00 98.5 69 20 110/55 (73) 94 02/24/18 00:13 62 02/24/18 00:00 98.5 68 20 108/68 (81) 94 02/23/18 20:00 72 02/23/18 20:00 97.9 88 20 109/58 (75) 92 02/23/18 15:39 98.1 70 20 105/58 (74) 93 I/O 02/23/18 02/23/18 02/23/18 02/24/18 02/24/18 02/24/18 07:00 15:00 23:00 07:00 15:00 23:00 Intake Total 480 ml Balance 480 ml Intake Oral 480 ml # Voids 4 4 # Bowel Movements 0 Laboratory Laboratory Tests Test 02/24/18 04:50 White Blood Count 5.6 Red Blood Count 3.60 Hemoglobin 9.3 Hematocrit 28.7 Mean Corpuscular Volume 79.7 Mean Corpuscular Hemoglobin 25.8 Mean Corpuscular Hemoglobin Concent 32.4 Red Cell Distribution Width 24.6 Platelet Count 276 Mean Platelet Volume 8.3 Date/Time Source Procedure Growth Status 02/22/18 04:47 Blood Peripheral Aerobic Blood Culture - Preliminary NO GROWTH IN 2 DAYS Resulted 02/22/18 04:47 Blood Peripheral Anaerobic Blood Culture - Preliminary NO GROWTH IN 2 DAYS Resulted 02/21/18 20:30 Urine Clean Catch Urine Culture - Final Escherichia Coli Complete Imaging Last Impressions Head CT 02/21/181702 Signed Impressions: Service Date/Time: January 17:21 - CONCLUSION: 2 lacunar infarcts on the left, chronic. No evidence of acute hemorrhage or edema. Kai Walker MD Chest X-Ray 4/26/18 1703 Signed Impressions: Service Date/Time: January 17:09 - CONCLUSION: Normal examination. The aorta is quite tortuous. Kai Walker MD Pelvis CT 02/21/18 0000 Signed Impressions: Service Date/Time: January 21:39 - CONCLUSION: No fracture or other acute abnormality demonstrated. Alexis Ricks MD Physical Exam HEENT; normocephalic; atraumatic CHEST:diminished CARDIAC: Regular rate and rhythm ABDOMEN: obese, no abdominal pain, bowel sounds are present in all four quadrants. EXTREMITIES: No edema. SKIN: Normal; no rash; no jaundice. APPLICATIONS SUPPORT LEAD: AOX3 (Rona Og) Assessment and Plan Plan ASSESSMENT - black stool, BRBPR - poss GIB. black stool could be from iron vs UGIB. admits chronic lifelong scant blood on wipe after BMs. says she had colonoscopy 4-5 years ago and bleeding seen. Had EGD also but can recall no abnormal findings. - anemia - 2/2 above, microcytic. has been taking iron. 02/23/18 EGD done on 12/25/2017 findings include severe esophagitis with ulceration , nodularity at the GE junction on the cardia side, unspecified , hiatal hernia, morin gastritis, and duodenal bulb duodenitis 02/24/18 mild drop hgb, no obvious GI bleeding. PLAN: colonoscopy sunday clears NPO after midnight obtain consent Await biopsies Protonix 40 mg Monitor labs EGD in 2 months pt seen by myself and Dr Mora. and this note is on his behalf (Rona Og) Plan Patient was seen and examined, agree with above note, plan on colonoscopy tomorrow, patient agreeable to have it done (Derik Mora MD) Rona Og Feb 24, 2018 14:37 Derik Mora MD Feb 24, 2018 19:39
[2018-02-24] MEDS ORDERED: PEG (High)/E-LYTE SOLN 4000 ML BTL PO ONE (16:00)
[2018-02-24] MEDS: cefTRIAXone INJ 1,000 MG in SODIUM CHLORIDE 0.9% INJ 100 ML IV SCH (21:46)
[2018-02-25] VITALS: BP 92/55; PULSE 72; PULSE 76; RESP 18; TEMP 98.2; O2SAT 95
[2018-02-25 00:14] VITALS: BP 106/59; PULSE 66
[2018-02-25 05:00] VITALS: BP 112/69; PULSE 75; RESP 20; TEMP 97.9; O2SAT 95
[2018-02-25] MEDS: NYSTATIN 100,000 U/GM PWD 15 GM BTL TOPICAL SCH ×2 (06:09→14:16)
[2018-02-25 08:00] VITALS: BP 116/59; PULSE 80; RESP 16; TEMP 98.3; O2SAT 92
[2018-02-25 08:54] LABS: HEMOGLOBIN 9.8 GM/DL (11.6-15.3); MEAN CELL VOLUME 79.9 FL (80.0-100.0); MEAN CORPUSCULAR HEMOGLOBIN 25.3 PG (27.0-34.0); MEAN CORPUSCULAR HGB CONC 31.7 % (32.0-36.0); PLATELET COUNT 308 TH/MM3 (150-450); RED BLOOD COUNT 3.88 MIL/MM3 (4.00-5.30); RED CELL DISTRIBUTION WIDTH 25.1 % (11.6-17.2); WHITE BLOOD COUNT 6.4 TH/MM3 (4.0-11.0)
[2018-02-25] MEDS: PANTOPRAZOLE SOD 40 MG DELAYED RELEASE TAB PO SCH (09:00)
[2018-02-25] MEDS: cloNIDine HCL 0.1 MG TAB PO SCH (09:00)
[2018-02-25] MEDS: FERROUS SULFATE 325 MG (65 MG ELEMENTAL IRON) TAB PO SCH (09:00)
[2018-02-25] MEDS: GABAPENTIN 100 MG CAP PO SCH ×2 (09:00→12:38)
[2018-02-25] MEDS: CARVEDILOL 6.25 MG TAB PO SCH (09:00)
[2018-02-25 09:27] LABS: BICARBONATE 22.7 MEQ/L (21.0-32.0); CALCIUM 9.6 MG/DL (8.5-10.1); CREATININE 2.1 MG/DL (0.50-1.00)
--- NOTE | 2018-02-25 11:41 | PD.PROCEDR ---
GI Procedure PROCEDURE PERFORMED Colonoscopy, diagnostic INDICATION FOR PROCEDURE GI bleed, anemia PROCEDURE: The procedure, risks and benefits were discussed with Ms. Yan and informed consent was obtained. Anesthesia sedated her with Diprivan. She was placed in the left lateral decubitus position. Colonoscopy: The Pentax videoscope was introduced through the rectum and advanced to cecum. Retroflexion was performed in the rectum. Colonic prep was fair with some stool in the cecum and ascending colon may interfere with the vision of lesions ESTIMATED BLOOD LOSS: None SPECIMENS REMOVED: None COMPLICATIONS: None IMPRESSION: Some stool mostly in the right colon may interfere with additional small lesions Significant diverticular disease throughout the colon Large internal and external hemorrhoids could be the reason for rectal bleeding No sign of active PLAN: Start diet as tolerated Monitor H&H Capsule endoscopy as an outpatient Okay to discharge home from GI perspective Colonoscopy in 2 years Preparation H for hemorrhoids Derik Mora MD Feb 25, 2018 11:41
--- NOTE | 2018-02-25 11:42 | HHI.GIFU ---
Subjective Remarks Patient lying in bed comfortably, no new complain, no active bleeding at this time, hemoglobin stable Objective Vitals I&O Vital Signs Date Time Temp Pulse Resp B/P (MAP) Pulse Ox O2 Delivery O2 Flow Rate FiO2 02/25/18 08:00 98.3 80 16 116/59 (78) 92 02/25/18 05:00 97.9 75 20 112/69 (83) 95 02/25/18 00:14 66 106/59 (75) 02/25/18 00:00 98.2 72 18 92/55 (67) 95 02/25/18 00:00 76 02/24/18 20:20 98.5 77 16 111/55 (73) 95 02/24/18 19:53 69 02/24/18 16:00 98.7 72 18 101/58 (72) 92 02/24/18 12:26 98.6 70 18 93/53 (66) 91 91/52 (65) 02/24/18 12:00 66 I/O 02/24/18 02/24/18 02/24/18 02/25/18 02/25/18 02/25/18 07:00 15:00 23:00 07:00 15:00 23:00 Intake Total 480 ml 350 ml Balance 480 ml 350 ml Intake Oral 480 ml Other 350 ml # Voids 4 2 2 1 # Bowel Movements 0 6 Laboratory Laboratory Tests Test 02/25/18 08:16 White Blood Count 6.4 Red Blood Count 3.88 Hemoglobin 9.8 Hematocrit 31.0 Mean Corpuscular Volume 79.9 Mean Corpuscular Hemoglobin 25.3 Mean Corpuscular Hemoglobin Concent 31.7 Red Cell Distribution Width 25.1 Platelet Count 308 Mean Platelet Volume 8.0 Blood Urea Nitrogen 27 Creatinine 2.10 Random Glucose 118 Calcium Level 9.6 Sodium Level 142 Potassium Level 4.0 Chloride Level 112 Carbon Dioxide Level 22.7 Anion Gap 7 Estimat Glomerular Filtration Rate 23 Date/Time Source Procedure Growth Status 02/22/18 04:47 Blood Peripheral Aerobic Blood Culture - Preliminary NO GROWTH IN 3 DAYS Resulted 02/22/18 04:47 Blood Peripheral Anaerobic Blood Culture - Preliminary NO GROWTH IN 3 DAYS Resulted 02/21/18 20:30 Urine Clean Catch Urine Culture - Final Escherichia Coli Complete Physical Exam HEENT; normocephalic; atraumatic CHEST:diminished CARDIAC: Regular rate and rhythm ABDOMEN: obese, no abdominal pain, bowel sounds are present in all four quadrants. EXTREMITIES: No edema. SKIN: Normal; no rash; no jaundice. 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[employer] Assessment and Plan Plan Patient was seen and examined, hemoglobin stable, no active bleeding, had a colonoscopy today IMPRESSION: Some stool mostly in the right colon may interfere with additional small lesions Significant diverticular disease throughout the colon Large internal and external hemorrhoids could be the reason for rectal bleeding No sign of active PLAN: Start diet as tolerated Monitor H&H Capsule endoscopy as an outpatient Okay to discharge home from GI perspective Colonoscopy in 2 years Preparation H for hemorrhoids We will sign off at this point Derik Mora MD Feb 25, 2018 11:42
[2018-02-25 12:00] VITALS: BP 139/88; PULSE 82; RESP 18; TEMP 98.1; O2SAT 97
[2018-02-25] MEDS ORDERED: PROPOFOL 200 MG/20 ML AMP IV ONE (12:00)
[2018-02-25] MEDS ORDERED: LIDOCAINE HCL 1% PF 5 ML SYRINGE OTHER ONE (12:00)
[2018-02-25] MEDS: AZITHROMYCIN 250 MG TAB PO SCH (12:38)
[2018-02-25] MEDS: TIOTROPIUM BROMIDE 18 MCG INH INH SCH (12:39)
[2018-02-25] MEDS: SODIUM CHLORIDE 0.9% FLUSH 10 ML FLUSH IV FLUSH SCH (12:39)
--- NOTE | 2018-02-25 13:02 | HHI.GIFU ---
Objective Vitals I&O Vital Signs Date Time Temp Pulse Resp B/P (MAP) Pulse Ox O2 Delivery O2 Flow Rate FiO2 02/25/18 11:42 97.1 73 16 141/82 (101) 99 02/25/18 08:00 98.3 80 16 116/59 (78) 92 02/25/18 05:00 97.9 75 20 112/69 (83) 95 02/25/18 00:14 66 106/59 (75) 02/25/18 00:00 98.2 72 18 92/55 (67) 95 02/25/18 00:00 76 02/24/18 20:20 98.5 77 16 111/55 (73) 95 02/24/18 19:53 69 02/24/18 16:00 98.7 72 18 101/58 (72) 92 I/O 02/24/18 02/24/18 02/24/18 02/25/18 02/25/18 02/25/18 07:00 15:00 23:00 07:00 15:00 23:00 Intake Total 480 ml 350 ml Balance 480 ml 350 ml Intake Oral 480 ml Other 350 ml # Voids 4 2 2 1 # Bowel Movements 0 6 Laboratory Laboratory Tests Test 02/25/18 08:16 White Blood Count 6.4 Red Blood Count 3.88 Hemoglobin 9.8 Hematocrit 31.0 Mean Corpuscular Volume 79.9 Mean Corpuscular Hemoglobin 25.3 Mean Corpuscular Hemoglobin Concent 31.7 Red Cell Distribution Width 25.1 Platelet Count 308 Mean Platelet Volume 8.0 Blood Urea Nitrogen 27 Creatinine 2.10 Random Glucose 118 Calcium Level 9.6 Sodium Level 142 Potassium Level 4.0 Chloride Level 112 Carbon Dioxide Level 22.7 Anion Gap 7 Estimat Glomerular Filtration Rate 23 Date/Time Source Procedure Growth Status 02/22/18 04:47 Blood Peripheral Aerobic Blood Culture - Preliminary NO GROWTH IN 3 DAYS Resulted 02/22/18 04:47 Blood Peripheral Anaerobic Blood Culture - Preliminary NO GROWTH IN 3 DAYS Resulted 02/21/18 20:30 Urine Clean Catch Urine Culture - Final Escherichia Coli Complete Physical Exam HEENT; normocephalic; atraumatic CHEST:diminished CARDIAC: Regular rate and rhythm ABDOMEN: obese, no abdominal pain, bowel sounds are present in all four quadrants. EXTREMITIES: No edema. SKIN: Normal; no rash; no jaundice. 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
[2018-02-25] MEDS ORDERED: PHEN60SU RECTAL (14:25)
[2018-02-25] MEDS ORDERED: PANT40TA3 PO (14:27)
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
== END 2018-02-25 16:20 | DRG 682 ==
LOC: NEPC 16:31 → NEDA 18:51 → N05B 19:12
PROVIDERS: ADMIT Family Medicine; ATTEND Family Medicine
PROC: 0DB78ZX Excision of Stomach, Pylorus, Via Natural or Artificial Opening Endoscopic, Diagnostic (ICD-10-PCS; 2018-02-22)
PROC: 0DB68ZX Excision of Stomach, Via Natural or Artificial Opening Endoscopic, Diagnostic (ICD-10-PCS; 2018-02-22)
PROC: 0DB38ZX Excision of Lower Esophagus, Via Natural or Artificial Opening Endoscopic, Diagnostic (ICD-10-PCS; 2018-02-22)
PROC: 0DB98ZX Excision of Duodenum, Via Natural or Artificial Opening Endoscopic, Diagnostic (ICD-10-PCS; principal; 2018-02-22 11:47)
PROC: 0DJD8ZZ Inspection of Lower Intestinal Tract, Via Natural or Artificial Opening Endoscopic (ICD-10-PCS; 2018-02-25)
DX: N17.9 Acute kidney failure, unspecified (principal); L89.323 Pressure ulcer of left buttock, stage 3; L89.313 Pressure ulcer of right buttock, stage 3; L89.153 Pressure ulcer of sacral region, stage 3; E87.2 Acidosis; I13.0 Hypertensive heart and chronic kidney disease with heart failure and stage 1 through stage 4 chronic kidney disease, or unspecified chronic kidney disease; E11.22 Type 2 diabetes mellitus with diabetic chronic kidney disease; D62 Acute posthemorrhagic anemia; I50.32 Chronic diastolic (congestive) heart failure; N39.0 Urinary tract infection, site not specified; K22.10 Ulcer of esophagus without bleeding; K92.2 Gastrointestinal hemorrhage, unspecified; I69.951 Hemiplegia and hemiparesis following unspecified cerebrovascular disease affecting right dominant side; K21.9 Gastro-esophageal reflux disease without esophagitis; E11.649 Type 2 diabetes mellitus with hypoglycemia without coma; J44.9 Chronic obstructive pulmonary disease, unspecified; K29.70 Gastritis, unspecified, without bleeding; K44.9 Diaphragmatic hernia without obstruction or gangrene; K29.80 Duodenitis without bleeding; I25.2 Old myocardial infarction; B96.20 Unspecified Escherichia coli [E. coli] as the cause of diseases classified elsewhere; D50.9 Iron deficiency anemia, unspecified; E78.00 Pure hypercholesterolemia, unspecified; E87.5 Hyperkalemia; I25.10 Atherosclerotic heart disease of native coronary artery without angina pectoris; K57.90 Diverticulosis of intestine, part unspecified, without perforation or abscess without bleeding; K64.4 Residual hemorrhoidal skin tags; K64.8 Other hemorrhoids; N18.9 Chronic kidney disease, unspecified; R26.9 Unspecified abnormalities of gait and mobility; I69.321 Dysphasia following cerebral infarction; W19.XXXA Unspecified fall, initial encounter; R53.81 Other malaise; Z91.81 History of falling; Z72.0 Tobacco use; Z90.5 Acquired absence of kidney; Z90.49 Acquired absence of other specified parts of digestive tract; Z88.0 Allergy status to penicillin; Z88.8 Allergy status to other drugs, medicaments and biological substances; Z91.040 Latex allergy status; Z79.84 Long term (current) use of oral hypoglycemic drugs
CPT/HCPCS: 36430; 70450; 71045; 72192; 80048; 80053; 81001; 82550; 82552; 82948; 83735; 84484; 85025; 85027; 85610; 85730; 86850; 86900; 86901; 86920; 87040; 87077; 87086; 87186; 88305; 88312; 93005; 94664; 96374; 96375; 96376; C9113; J0610; J0696; J1815; J2370; J7611; P9016